=== PATIENT | male | born 1955 | race Two or more races ===

== ENCOUNTER 2023-05-18 16:02 | Emergency (ER) | payer BC ==
[~2023-05-18] VITALS: Ht 172.7 cm; Wt 69.0 kg
[2023-05-18 16:12] VITALS: O2SAT 98
[2023-05-18 19:52] VITALS: BP 136/82; PULSE 103; RESP 16; TEMP 98
== END 2023-05-18 20:01 | disposition short-term general hospital (02) ==
LOC: ER 16:02
DX: S12.9XXA Fracture of neck, unspecified, initial encounter (principal); S60.512A Abrasion of left hand, initial encounter; V29.99XA Rider (driver) (passenger) of other motorcycle injured in unspecified traffic accident, initial encounter; Y93.89 Activity, other specified; Y92.89 Other specified places as the place of occurrence of the external cause; Y99.8 Other external cause status
CPT/HCPCS: 73130; 73564; 99285